=== PATIENT | female | born 1940 | race Caucasian/White ===

== ENCOUNTER 2017-07-09 20:24 | Observation (INO) ==
[2017-07-09] MEDS ORDERED: NS 1,000 ML IV ONE (20:41)
[2017-07-09] MEDS ORDERED: ONDANSETRON 4 MG/2 ML INJECTION IVP ONE (20:41)
--- NOTE | 2017-07-09 20:49 | Emergency Department Report ---
Nausea/Vomiting/Diarrhea HPI - General Chief complaint: Nausea/Vomiting/Diarrhea Stated complaint: n/v/d Time Seen by Provider: 07/09/17 20:24 - History of Present Illness HPI Narrative: 76-year-old female with nausea vomiting for a week. She initially was throwing up and diarrhea over the weekend. It improved, yesterday she had one more episode. She was seen in the office today and no bacterial infection was noted, she was told she had a virus but that she might catch bacterial infection and so she was started on Zithromax. She took 1 tablet and threw up about 4 hours later. She denies any abdominal pain. - Related Data Home Medications Medication Instructions Recorded Confirmed hydroCHLOROthiazide 25 mg PO DAILY #0 10/08/07/09/17 [Hydrochlorothiazide] Cabergoline 0.25 mg PO WEEKLY #0 12/01/14 07/09/17 Acetaminophen [Acetaminophen Extra 1,000 mg PO Q6H PRN 07/09/17 07/09/17 Strength] Acetaminophen/Diphenhydramine 2 tab PO HS 07/09/17 07/09/17 [Acetaminophen Pm Caplet] Ascorbic Acid [Vitamin C] 1,000 mg PO QAM 07/09/17 07/09/17 Calcium Carbonate [Calcium] 500 mg PO NOON 07/09/17 07/09/17 Citalopram [Celexa] 20 mg PO QAM 07/09/17 07/09/17 Ferrous Sulfate [Iron] 325 mg PO NOON 07/09/17 07/09/17 Flaxseed Oil 200 mg PO NOON 07/09/17 07/09/17 Glimepiride [Amaryl] 1 mg PO 07/09/17 07/09/17 Glimepiride [Amaryl] 2 mg PO QAM 07/09/17 07/09/17 Insulin Degludec [Tresiba 32 unit SQ 07/09/17 07/09/17 Flextouch U-100] Lactobacillus Acidophilus 1 cap PO NOON 07/09/17 07/09/17 [Probiotic] Losartan [Cozaar] 100 mg PO QAM 07/09/17 07/09/17 Metoprolol Tartrate [Metoprolol 100 mg PO 07/09/17 07/09/17 Tartrate] Multivit-Min/Iron/Folic/Lutein 1 tab PO NOON 07/09/17 07/09/17 [Centrum Silver Women Tablet] Ondansetron [Ondansetron Odt] 8 mg PO TID PRN 07/09/17 07/09/17 Pantoprazole Sodium [Protonix] 40 mg PO QAM 07/09/17 07/09/17 Temazepam [Restoril] 15 mg PO HS 07/09/17 07/09/17 Vitamin B Complex + C [Total B + C] 1 tab PO NOON 07/09/17 07/09/17 Allergies Allergy/AdvReac Type Severity Reaction Status Date / Time codeine Allergy Unknown Verified 07/09/17 20:27 hydrocodone Allergy Unknown Verified 07/09/17 20:27 prochlorperazine AdvReac Mild AGITATION Verified 07/09/17 20:27 Review of Systems All systems: reviewed and negative except as stated PFSH Patient Stated Medical History Cerebrovascular Accident No Paralysis No Seizures No Syncope No Cataracts Yes Angina No Cardiac Arrhythmia No Congestive Heart Failure No Coronary Artery Disease No Heart Murmur No Hypertension Yes Hypotension No Myocardial Infarction No Rheumatic Fever No Valvular Heart Disease No Other Cardiology No Asthma No Bronchitis No Chronic Obstructive Pulmonary No Disease (COPD) Pneumonia No Pulmonary Edema No Pulmonary Embolism No Sleep Apnea Yes Tuberculosis No Other Respiratory No Diabetes Mellitus Type 1 No Diabetes Mellitus Type 2 Yes Cirrhosis No Gastroesophageal Reflux Yes Disease Gastrointestinal Bleeding No Hepatitis No Hiatal Hernia No Obstructive Bowel No Ulcer No Other GI No Anemia Yes Osteoarthritis No Other Musculoskeletal No Anesthesia Reactions No Blood Transfusions No Chemotherapy No Malignant Hyperthermia No Other No Depression No Fibroids Yes Now No - Social History Smoking status: Never smoker Substance use type: does not use Does patient use chewing tobacco?: No Physical Exam - Limitations Limitations: no limitations - General General appearance: alert, in no apparent distress - Normal Exams: Head:: Normocephalic without trauma Neck:: Full range of motion, without adenopathy, JVD, bruits or thyromegaly Chest/Respirations:: Clear all [place], with good airflow, and symmetry bilaterally Cardiovascular:: Regular rate and rhythm, without murmur or gallop, Pulses 2+ all extremities, capillary refill, <2 seconds all extremities Abdomen:: Bowel sounds positive, soft, non-tender, non-distended, no hepatosplenomegaly, masses or bruits noted Neurological:: Patient is alert, and oriented, cranial nerves, motor/sensory/ cerebellar, exams w/o gross deficits, to observation Psychiatric:: Patient exhibits, appropriate attention, emotion and affect Course Vital Signs Temperature 97.8 F 07/09/17 20:24 Pulse Rate 70 07/09/17 20:24 Respiratory Rate 20 07/09/17 20:24 Blood Pressure 175/75 H 07/09/17 20:24 Pulse Oximetry 100 07/09/17 20:24 Temperature 98.4 F 07/10/17 00:05 Pulse Rate 79 07/10/17 00:03 Respiratory Rate 16 07/09/17 23:45 Blood Pressure 164/70 H 07/10/17 00:03 Pulse Oximetry 94 07/10/17 00:03 Nausea/Vomiting/Diarrhea - [facility] Narrative Medical decision making narrative: CBC CMP, acute abdomen series ordered. Patient given Zofran 4 mg IV, Compazine 10 mg IV and 1 L normal saline bolus. Abdominal x-ray appears normal. Chest x- ray questionable for right lower lobe infiltrate, however lactate and white count are normal. Patient does have sodium of 119 with an initial potassium of 3.1. After 1 L normal saline was given, CMP was repeated and sodium decreased to 118 while potassium increased to 3.5. She continued with weakness. She had previously had some mental status change with confusion and fatigue, however this did improve with the IV fluid. Case discussed with hospitalist in regards to her low sodium and weakness. Patient will be admitted for her nausea, vomiting with hyponatremia and weakness. - Differential Diagnosis Likely: food poisoning, gastroenteritis, dehydration - Medical Records Attestation: I reviewed the patient's medical records. - Lab Data Attestation: I reviewed the patient's lab results. Result diagrams: 07/09/17 21:00 07/09/17 23:30 Lab Results 07/09/17 07/09/17 07/09/17 Range/Units 20:57 21:00 21:00 WBC 11.0 (4.5-11.0) T/MM3 RBC 4.19 (4.00-5.20) M/MM3 Hgb 13.0 (12-16) GM/DL Hct 34.2 L (36-46) % MCV 81.6 (80-100) UM3 MCH 31.0 (26-34) UUG MCHC 38.0 H (31-37) GM/DL RDW Std Deviation 31.8 L (36.9-50.2) FL Plt Count 218 (130-400) T/MM3 MPV 9.6 (9.4-12.4) UM3 Immature Gran % (Auto) Not performed Neut % (Auto) Not performed Lymph % (Auto) Not performed [place] % (Auto) Not performed Eos % (Auto) Not performed Baso % (Auto) Not performed Neut # (Auto) Not performed Lymph # (Auto) Not performed [place] # (Auto) Not performed Eos # (Auto) Not performed Baso # (Auto) Not performed Abs Immat Gran (auto) Not performed Neutrophils % (Manual) 80.0 H (33-66) % Band Neutrophils % 4.0 (0-6) % Lymphocytes % (Manual) 7.0 L (23-45) % Monocytes % (Manual) 9.0 (0-9.0) % Neutrophils # (Manual) 8.8 H (1.8-7.7) T/MM3 Band Neutrophils # 0.4 T/MM3 Lymphocytes # (Manual) 0.8 L (1-4.8) T/MM3 Monocytes # (Manual) 1.0 H (0-0.8) T/MM3 RBC Morph Comment Normal Turbidity < 20 (0-20) Sodium 119 L* (134-144) MEQ/L Potassium 3.1 L (3.6-5) MEQ/L Chloride 84 L (98-107) MEQ/L Carbon Dioxide 25 (22-30) MEQ/L Anion Gap 10 (5-15) MEQ/L BUN 8.0 (7-17) MG/DL Creatinine 0.6 L (0.7-1.2) MG/DL GFR Calculation 97 BUN/Creatinine Ratio 13 (6-26) RATIO Glucose 206 H (65-110) MG/DL Calculated Osmolality 234 L (261-280) MOSM/KG Calcium 8.3 L (8.4-10.2) MG/DL Total Bilirubin 0.80 (0.20-1.30) MG/DL Icterus Index < 2 (0-7) AST 22 (14-36) U/L ALT 29 (9-52) U/L Alkaline Phosphatase 108 (38-126) U/L Total Protein 6.5 (6.3-8.2) G/DL Albumin 3.9 (3.5-5.0) G/DL Globulin 2.6 (2.4-3.6) G/DL Albumin/Globulin Ratio 1.5 (1.1-2.2) RATIO Lipase 53 (23-300) U/L Plasma Lactate (0.6-2.2) MMOL/L Specimen Hemolysis < 15 (0-25) Ur Collection Type Urine, void-cc/notcc Urine Color Yellow (YELLOW) Urine Clarity Clear Urine pH 7.0 (5.0-8.0) Ur Specific [place] 1.010 L (1.015-1.025) Urine Protein Negative (NEGATIVE) Urine Glucose (UA) 1+ A (NEGATIVE) Urine Ketones 2+ A (NEGATIVE) Urine Occult Blood Negative (NEGATIVE) Urine Nitrate Negative (NEGATIVE) Urine Bilirubin Negative (NEGATIVE) Urine Urobilinogen 0.2 (NORMAL) EU/DL Ur Leukocyte Esterase Negative (NEGATIVE) Urinalysis Comment Microscopic not ind. 07/09/17 Range/Units 23:30 WBC (4.5-11.0) T/MM3 RBC (4.00-5.20) M/MM3 Hgb (12-16) GM/DL Hct (36-46) % MCV (80-100) UM3 MCH (26-34) UUG MCHC (31-37) GM/DL RDW Std Deviation (36.9-50.2) FL Plt Count (130-400) T/MM3 MPV (9.4-12.4) UM3 Immature Gran % (Auto) Neut % (Auto) Lymph % (Auto) [place] % (Auto) Eos % (Auto) Baso % (Auto) Neut # (Auto) Lymph # (Auto) [place] # (Auto) Eos # (Auto) Baso # (Auto) Abs Immat Gran (auto) Neutrophils % (Manual) (33-66) % Band Neutrophils % (0-6) % Lymphocytes % (Manual) (23-45) % Monocytes % (Manual) (0-9.0) % Neutrophils # (Manual) (1.8-7.7) T/MM3 Band Neutrophils # T/MM3 Lymphocytes # (Manual) (1-4.8) T/MM3 Monocytes # (Manual) (0-0.8) T/MM3 RBC Morph Comment Turbidity < 20 (0-20) Sodium 118 L* (134-144) MEQ/L Potassium 3.5 L (3.6-5) MEQ/L Chloride 87 L (98-107) MEQ/L Carbon Dioxide 24 (22-30) MEQ/L Anion Gap 7 (5-15) MEQ/L BUN 8.0 (7-17) MG/DL Creatinine 0.7 (0.7-1.2) MG/DL GFR Calculation 81 BUN/Creatinine Ratio 11 (6-26) RATIO Glucose 240 H (65-110) MG/DL Calculated Osmolality 234 L (261-280) MOSM/KG Calcium 8.7 (8.4-10.2) MG/DL Total Bilirubin 0.80 (0.20-1.30) MG/DL Icterus Index < 2 (0-7) AST 22 (14-36) U/L ALT 31 (9-52) U/L Alkaline Phosphatase 105 (38-126) U/L Total Protein 6.4 (6.3-8.2) G/DL Albumin 3.8 (3.5-5.0) G/DL Globulin 2.6 (2.4-3.6) G/DL Albumin/Globulin Ratio 1.5 (1.1-2.2) RATIO Lipase (23-300) U/L Plasma Lactate 0.8 (0.6-2.2) MMOL/L Specimen Hemolysis < 15 (0-25) Ur Collection Type Urine Color (YELLOW) Urine Clarity Urine pH (5.0-8.0) Ur Specific [place] (1.015-1.025) Urine Protein (NEGATIVE) Urine Glucose (UA) (NEGATIVE) Urine Ketones (NEGATIVE) Urine Occult Blood (NEGATIVE) Urine Nitrate (NEGATIVE) Urine Bilirubin (NEGATIVE) Urine Urobilinogen (NORMAL) EU/DL Ur Leukocyte Esterase (NEGATIVE) Urinalysis Comment - Radiology Data Attestation: I reviewed the patient's radiology results. Disposition Clinical Impression: Dehydration, Hyponatremia, Nausea & vomiting Disposition: 02 [place] [facility]: Stable Prescriptions: No Action hydroCHLOROthiazide [Hydrochlorothiazide] 25 mg PO DAILY #0 Flaxseed Oil 200 mg PO NOON Multivit-Min/Iron/Folic/Lutein [Centrum Silver Women Tablet] 1 tab PO NOON Calcium Carbonate [Calcium] 500 mg PO NOON Vitamin B Complex + C [Total B + C] 1 tab PO NOON Lactobacillus Acidophilus [Probiotic] 1 cap PO NOON Ferrous Sulfate [Iron] 325 mg PO NOON Temazepam [Restoril] 15 mg PO HS Citalopram [Celexa] 20 mg PO QAM Pantoprazole Sodium [Protonix] 40 mg PO QAM Losartan [Cozaar] 100 mg PO QAM Glimepiride [Amaryl] 1 mg PO HS Glimepiride [Amaryl] 2 mg PO QAM Ascorbic Acid [Vitamin C] 1,000 mg PO QAM Insulin Degludec [Tresiba Flextouch U-100] 32 unit SQ HS Ondansetron [Ondansetron Odt] 8 mg PO TID PRN PRN Reason: Nausea &/Or Vomiting Cabergoline 0.25 mg PO WEEKLY #0 Acetaminophen/Diphenhydramine [Acetaminophen Pm Caplet] 2 tab PO HS Acetaminophen [Acetaminophen Extra Strength] 1,000 mg PO Q6H PRN PRN Reason: Pain Metoprolol Tartrate [Metoprolol Tartrate] 100 mg PO HS Referrals: Lilli Richards DO [Family Provider] - Time of Disposition: 01:21 - Seen By: physician
[2017-07-09] MEDS: SALINE FLUSH 10ml SYRINGE IVF PRN (20:55)
[2017-07-10] MEDS ORDERED: PROCHLORPERAZINE 10 MG/2 ML INJECTION IVP ONE (00:05)
[2017-07-10] MEDS: SALINE FLUSH 10ml SYRINGE IVF PRN ×2 (00:16→02:57)
[2017-07-10] MEDS ORDERED: ONDANSETRON 4 MG/2 ML INJECTION IVP PRN (02:17)
[2017-07-10] MEDS ORDERED: DEXTROSE 50% SYRINGE 50ml (1 AMP) IVP PRN (02:17)
[2017-07-10] MEDS ORDERED: GLUCOSE ORAL GEL 40% 37.5gm PO PRN (02:17)
[2017-07-10 02:47] VITALS: BMI 26.9
--- NOTE | 2017-07-10 02:51 | History & Physical Report ---
History of Present Illness Date: 07/10/17 Chief complaint: Nausea, vomiting and diarrhea HPI: Ms. Mckay is a 76 year old female who has presented to the emergency department this evening with reports of confusion and dehydration. She apparently has had nausea, vomiting and diarrhea for 3 days. The family has noticed that she has been somewhat confused and weak. She was brought to the ER for further evaluation this evening. . Workup in the emergency department has revealed dehydration. Studies/treatment modalities performed thus far include basic labs, and IV fluids. Antiemetic medications administered. She has no focal deficit on exam. Please refer to charted lab data, radiographic imaging reports, medication administration reports, and ER provider documentation for further details. At the request of the ER provider, this patient will be placed in the hospital tonight for further evaluation and treatment of presenting issues. Please note this patient encounter was performed via the use of telemedicine technology Review of Systems All systems PM: 10-point ROS was reviewed, no additional remarkable complaints except Past Medical History Patient Stated Medical History Cataracts Yes Hypertension Yes Sleep Apnea Yes: cpap at night Diabetes Mellitus Type 2 Yes Gastroesophageal Reflux Yes Disease Hx Urinary Tract Infection Yes Anemia Yes Other Musculoskeletal Yes: achy joints Depression Yes Fibroids Yes Family History Updates: As above - Social History Smoking status: Never smoker Medications Home Medications Medication Instructions Recorded Confirmed Type hydroCHLOROthiazide 25 mg PO DAILY #0 10/08/09 07/09/17 History [Hydrochlorothiazide] Cabergoline 0.25 mg PO WEEKLY #0 12/01/14 07/09/17 History Acetaminophen [Acetaminophen Extra 1,000 mg PO Q6H PRN 07/09/17 07/09/17 History Strength] Acetaminophen/Diphenhydramine 2 tab PO HS 07/09/17 07/09/17 History [Acetaminophen Pm Caplet] Citalopram [Celexa] 20 mg PO QAM 07/09/17 07/09/17 History Insulin Degludec [Tresiba 32 unit SQ HS 07/09/17 07/09/17 History Flextouch U-100] Losartan [Cozaar] 100 mg PO QAM 07/09/17 07/09/17 History Metoprolol Tartrate 100 mg PO HS 07/09/17 07/09/17 History Pantoprazole Sodium [Protonix] 40 mg PO QAM 07/09/17 07/09/17 History Temazepam [Restoril] 15 mg PO HS 07/09/17 07/09/17 History Allergies Allergy/AdvReac Type Severity Reaction Status Date / Time codeine Allergy Unknown Verified 07/09/17 20:27 hydrocodone Allergy Unknown Verified 07/09/17 20:27 prochlorperazine AdvReac Mild AGITATION Verified 07/09/17 20:27 Exam Vital Signs: Temperature 98.4 F 07/10/17 00:05 Pulse Rate 79 07/10/17 00:03 Respiratory Rate 16 07/09/17 23:45 Blood Pressure 164/70 H 07/10/17 00:03 Pulse Oximetry 94 07/10/17 00:03 Height/Weight/BMI: Height 1.57 m Weight 66.8 kg Body Mass Index 26.9 - Constitutional Present: no acute distress, well nourished, well developed - Routine HEENT Exam Head: Present: normocephalic, atraumatic - Routine Respiratory Exam Present: CTA bilaterally. Absent: accessory muscle use - Routine Cardiovascular Exam Present: RRR, no murmur - Routine Abdominal Exam Present: soft, non tender - Routine Extremities Exam Absent: edema - Routine Skin Exam Absent: rash - Routine Neurological Exam Present: alert, oriented X3 - Routine Psychiatric Exam Present: normal affect Results - Labs CBC & Chem 7: 07/10/17 04:01 07/10/17 16:19 Assessment and Plan (1) Nausea & vomiting Current visit: Yes Status: Acute Assessment and Plan: Assessment Suspected viral gastroenteritis with subsequent dehydration, confusion Weakness and debility secondary to above Hypovolemic hyponatremia Diabetes mellitus Hypertension on beta brad and hydrochlorothiazide Plan This patient will be placed on the medical floor under obs status. Will continue IV fluids and hydration. Monitor overnight. Follow up labs including a serum sodium level for the morning. Stool studies. Antiemetic medications will be provided. I have reviewed the provided list of home medications. Home medications which would be appropriate for administration at this time have been continued. Daytime rounding provider to please review and make further changes as necessary. HCTZ will be held. Clinical progress will be monitored, and supportive care will be provided. Changes to the aforementioned plan will be made this evening as necessary. Appropriate DVT prophylaxis has been ordered. Addendum: I have seen and examined the patient. I agree with history and physical and its components by Dr Padilla. The review of systems medical history social history and surgical history are appropriate I have nothing further to add. I have inquired about the family history and find this to be noncontributory. On physical exam the patient is now alert comfortable in no apparent distress and certainly not altered. Assessment and plan is appropriate denying and I agree with this. Please see the discharge plan with summary for further notation and assessment of subsequent lab work - Physician Narrative Narrative: Date: 07/10/17 Time: 0248 Hospital Course Summary Disclaimer: The visit summary below is not to be considered part of the above Progress Note.
[2017-07-10] MEDS: NS 1,000 ML IV SCH ×2 (02:57→13:15)
[2017-07-10] MEDS: ACETAMINOPHEN 325 MG TABLET PO PRN ×2 (03:05→12:38)
[2017-07-10] MEDS: INSULIN ASPART 100unit/ml INJECTION SQ PRN ×2 (06:19→14:28)
--- NOTE | 2017-07-10 08:47 | XRay Report ---
EXAM: XR acute abdomen series COMPARISON: None available. HISTORY: n/v,cough . FINDINGS: There is a calcified nodule seen at the left lower lung likely representing old granulomatous disease. The lungs are otherwise clear. Surgical clips are seen in the right upper quadrant likely representing prior cholecystectomy. Some air-filled loops of nondilated large and small bowel are noted. There is a small amount of stool and air seen within the colon in the pelvis. Air is seen in the stomach. Calcification is seen projecting over the right inferior bladder which may represent a phlebolith. IMPRESSION: 1. Probable calcified granuloma at the left lower lung. The lungs are otherwise clear. 2. Unremarkable bowel gas pattern. LOCATION OF DICTATION: [facility] [place] .
[2017-07-10] MEDS ORDERED: PANTOPRAZOLE 40 MG PO SCH (09:00)
[2017-07-10] MEDS ORDERED: CHOLESTYRAMINE LIGHT 4 G PACKET PO PRN (12:38)
[2017-07-10 15:27] VITALS: BP 177/73; RESP 20; TEMP 98.6; O2SAT 98
[2017-07-10] MEDS ORDERED: AMOX/CLAV 500 MG/125 MG TABLET PO SCH (17:00)
[2017-07-10 17:20] VITALS: PULSE 68
[2017-07-10] MEDS ORDERED: ACETAMINOPHEN 500 MG TABLET PO PRN (19:44)
--- NOTE | 2017-07-10 19:44 | Discharge Summary ---
Discharge Information Date of admission: 07/10/17 00:49 Anticipated date of discharge: 07/10/17 Attending Physician: Jose Davis MD Primary care physician: Lilli Richards DO Consults: 07/10/17 IRU Screening [Inpatient Rehab Screening] [CONS] Routine - Discharge Diagnosis (1) Nausea & vomiting Status: Acute - Laboratory Labs: 07/10/17 04:01 07/10/17 16:19 History of Present Illness HPI: Ms. Mckay is a 76 year old female who has presented to the emergency department this evening with reports of confusion and dehydration. She apparently has had nausea, vomiting and diarrhea for 3 days. The family has noticed that she has been somewhat confused and weak. She was brought to the ER for further evaluation this evening. . Workup in the emergency department has revealed dehydration. Studies/treatment modalities performed thus far include basic labs, and IV fluids. Antiemetic medications administered. She has no focal deficit on exam. Please refer to charted lab data, radiographic imaging reports, medication administration reports, and ER provider documentation for further details. At the request of the ER provider, this patient will be placed in the hospital tonight for further evaluation and treatment of presenting issues. Please note this patient encounter was performed via the use of telemedicine technology Objective Vital signs: Temperature 98.6 F 07/10/17 15:22 Pulse Rate 68 07/10/17 16:13 Respiratory Rate 20 07/10/17 15:22 Blood Pressure 177/73 H 07/10/17 15:22 Pulse Oximetry 98 07/10/17 15:22 Rhythm: Normal Sinus Rhythm Height/Weight/BMI: Height 5 ft 2 in Weight 66.8 kg Body Mass Index 26.9 - Constitutional Present: well nourished, well developed - Routine HEENT Exam Eye: Present: EOMI ENT: Present: mucous membranes moist, dentition normal - Routine Respiratory Exam Present: CTA bilaterally. Absent: wheezes - Routine Cardiovascular Exam Present: RRR. Absent: murmur - Routine Abdominal Exam Present: soft, normoactive bowel sounds, non distended. Absent: tenderness - Routine Extremities Exam Present: normal capillary refill - Routine Skin Exam Present: dry, warm - Routine Neurological Exam Present: alert, oriented X3, CN II-XII intact - Routine Lymphatic Exam Lymphatic: Absent: adenopathy - Routine Psychiatric Exam Present: normal affect Hospital Course This is a general summary of the patient's hospital course. For more details refer to the complete medical record. Hospital course: This very nice 76-year-old woman who was having several days of diarrhea with vaguely viral symptoms associated with it. She was having some significant postnasal drip and was started on azithromycin for the conservative sinusitis. At this point her diarrhea became significantly worse and she developed vomiting to the point that she could no longer keep an adequate of fluids. She was brought into the emergency room and found have a sodium level of 119 (she does commonly run low around 125). She was placed on normal saline and given antiemetics and felt significantly improved by the afternoon. A repeat sodium at 18 hours showed a 132 (she had corrected faster than was anticipated but had not been given any hypertonic saline solutions) she felt altogether better by this time. I discussion of whether or not the azithromycin was responsible for this led us to believe that she should not continue this medication. As an alternative she has been given Augmentin but has been warned that this may also promote diarrhea. She's being discharge at this time and may follow-up with primary care physician as needed in 1 to 2 weeks Time spent with patient: discharge greater than 30 minutes Discharge Plan - Discharge Disposition Disposition: Discharged Home, Self-Care *Condition: Stable Reason For Visit (Visit label in EMR): dehydration,ams - Discharge Medications *Discharge Medications: New Amox/Clav [Augmentin] 500 mg PO Q8HR #21 tab Continue hydroCHLOROthiazide [Hydrochlorothiazide] 25 mg PO DAILY #0 Temazepam [Restoril] 15 mg PO HS Citalopram [Celexa] 20 mg PO QAM Pantoprazole Sodium [Protonix] 40 mg PO QAM Losartan [Cozaar] 100 mg PO QAM Insulin Degludec [Tresiba Flextouch U-100] 32 unit SQ HS Cabergoline 0.25 mg PO WEEKLY #0 Acetaminophen/Diphenhydramine [Acetaminophen Pm Caplet] 2 tab PO HS Acetaminophen [Acetaminophen Extra Strength] 1,000 mg PO Q6H PRN PRN Reason: Pain Metoprolol Tartrate 100 mg PO HS - Discharge Packet/Instructions *Diet: Advance as tolerated but focus on adequate fluid intake with Gatoraide as well *Activity: as tolerated *Pain Management/Treatment: Routine *Wound Care: None *Expected Signs/Symptoms: May continue to experience diarrhea for some days *Notify Physician if: Dizzy week confused or having intractable vomiting *During Business Hours Contact: Primary care doctor *After Business Hours Contact: Emergency room *Pending Lab/Results: Follow up w/your PCP - Referrals/Follow Up - Patient Handouts - Dismissal Complete Discharge Instructions are:: Complete Physician Narrative - Narrative Attestation Narrative: Date: 07/10/17 Time: 1942
[2017-07-10] MEDS ORDERED: APAP/DIPHENHYDRAMINE 500 MG/25 MG TABLET PO SCH (21:00)
[2017-07-10] MEDS ORDERED: METOPROLOL TARTRATE 100 MG PO SCH (21:00)
[2017-07-10] MEDS ORDERED: TEMAZEPAM 15 MG PO SCH (21:00)
[2017-07-10] MEDS ORDERED: INSULIN DEGLUDEC 32 UNIT SQ SCH (21:00)
[2017-07-11] MEDS ORDERED: CITALOPRAM 20 MG TABLET PO SCH (09:00)
[2017-07-11] MEDS ORDERED: LOSARTAN 100 MG TABLET PO SCH (09:00)
== END 2017-07-10 20:23 | disposition home or self-care (01) ==
LOC: ED 20:24 → MED 20:24
PROVIDERS: ADMIT Hospitalist; ATTEND Family Medicine